=== PATIENT | female | born 1990 | race Hispanic/Latino ===

== ENCOUNTER → 2016-12-11 | Outpatient (CLI) | payer SELFPAY ==
[2016-12-11 15:26] LABS: BASOPHILS # (AUTO) 0.02 10*3/UL; BASOPHILS % (AUTO) 0.3 % (0-1); EOSINOPHILS # (AUTO) 0.04 10*3/UL; EOSINOPHILS % (AUTO) 0.5 % (0-8); HEMATOCRIT 37.4 % (37.0-47.0); HEMOGLOBIN 12.3 g/dL (12.0-16.0); MEAN CORPUSCULAR HEMOGLOBIN 27.8 PG (27-31); MEAN CORPUSCULAR HGB CONC 32.9 g/dL (33-37); MEAN CORPUSCULAR VOLUME 84.4 FL (81-99); MEAN PLATELET VOLUME 12.4 FL (7.4-12.2); MONOCYTES # (AUTO) 0.57 10*3/UL (0.3-0.8); MONOCYTES % (AUTO) 7.5 % (5-15); NEUTROPHILS # (AUTO) 4.77 10*3/UL; NEUTROPHILS % (AUTO) 62.5 % (50-80); PLATELET MORPHOLOGY COMMENT NORMAL MORPHOLOGY (NORM); RBC MORPHOLOGY COMMENT NORMAL MORPHOLOGY (NORM); RED BLOOD COUNT 4.43 10^6/uL (4.20-5.40); WBC MORPHOLOGY COMMENT NORMAL MORPHOLOGY (NORM)
[2016-12-11 15:50] LABS: HIV ANTIBODY NEGATIVE (N); HIV-1 P24 ANTIGEN NEGATIVE (N)
== END ==
LOC: MOB LAB 13:28
PROVIDERS: ATTEND Obstetrics & Gynecology
DX: Z36 Encounter for antenatal screening of mother (principal); Z3A.12 12 weeks gestation of pregnancy
CPT/HCPCS: 36415; 80081; 86900; 86901; 87480; 87491; 87510; 87591; 87660

== ENCOUNTER 2017-06-23 20:05 | Inpatient (IN) ==
[2017-06-23] MEDS ORDERED: Lidocaine 1% 10 MG/ML - 20 ML VIAL SUBCUT PRN (22:47)
[2017-06-23] MEDS ORDERED: ePHEDrine Inj 5 MG in Normal Saline Flush 1 ML IVP PRN (22:47)
[2017-06-23] MEDS ORDERED: CefOXitin Inj 2 GM in Sodium Chloride 0.9% 100 ML IV PRN (22:47)
[2017-06-23] MEDS ORDERED: ONDANSETRON 4 MG/2 ML VIAL IVP PRN (22:47)
[2017-06-23] MEDS ORDERED: Phenylephrine Inj 50 MCG in Normal Saline Flush 0.5 ML IVP PRN (22:47)
[2017-06-23] MEDS ORDERED: diphenhydrAMINE 50 MG/1 ML VIAL IVP PRN (22:47)
[2017-06-23] MEDS ORDERED: NALOXONE 0.4 MG/1 ML VIAL IVP PRN (22:47)
[2017-06-23] MEDS ORDERED: CALCIUM CARBONATE 500 MG (TUMS) CHEWABLE TABLET PO PRN (22:47)
[2017-06-23] MEDS ORDERED: fentaNYL Inj 100 MCG/2 ML VIAL IV PRN (22:47)
[2017-06-23] MEDS ORDERED: BUTORPHANOL TARTRATE 2 MG/1 ML VIAL IVP PRN (22:47)
[2017-06-23] MEDS ORDERED: MISOPROSTOL 200 MCG TABLET RECTAL PRN (22:47)
[2017-06-23] MEDS ORDERED: METHYLERGONOVINE MALEATE 0.2 MG/1 ML VIAL IM PRN (22:47)
[2017-06-23] MEDS ORDERED: OXYTOCIN 10 UNIT/1 ML IM PRN (22:47)
[2017-06-23] MEDS ORDERED: CITRIC ACID/SODIUM CITRATE 30 ML CUP PO PRN (22:47)
[2017-06-23] MEDS ORDERED: Metoclopramide Inj 10 MG/2 ML VIAL IV PRN (22:47)
[2017-06-23] MEDS ORDERED: Naloxone Inj 0.01 MG in Normal Saline Flush 1 ML IVP PRN (22:47)
[2017-06-23] MEDS ORDERED: LIDOCAINE W/ SODIUM BICARB 0.5 ML SYR SUBD PRN (22:47)
[2017-06-23] MEDS ORDERED: NORMAL SALINE 10 ML SYRINGE FLUSH IVP PRN (22:47)
[2017-06-23] MEDS ORDERED: Nalbuphine Inj 20 MG/ML Ampule IVP PRN (22:47)
[2017-06-23] MEDS ORDERED: LIDOCAINE HCL 2 % 10 ML JELLY URO-JECT TOPICAL PRN (22:47)
[2017-06-23] MEDS ORDERED: Carboprost Inj 250 MCG/ML AMP IM PRN (22:47)
[2017-06-23] MEDS ORDERED: Famotidine Inj 20 MG in Normal Saline Flush 10 ML IVP PRN ×4 (22:47)
[2017-06-23] MEDS ORDERED: TERBUTALINE SULFATE 1 MG/1 ML SDV SUBCUT PRN (22:47)
[2017-06-23] MEDS: Lactated Ringers-OB Dept 1,000 ML PRIMARY IV SCH (23:00)
[2017-06-23] MEDS ORDERED: Oxytocin 20 Units + LR 20 UNIT/1,000 ML BAG IV SCH (23:00)
[2017-06-23 23:14] LABS: Hematocrit [HCT] 31.9 % (37.0-47.0); Hemoglobin [HGB] 10.3 g/dL (12.0-16.0); MEAN CORPUSCULAR HEMOGLOBIN 26.1 PG (27-31); MEAN CORPUSCULAR HGB CONC 32.3 g/dL (33-37); MEAN CORPUSCULAR VOLUME 80.8 FL (81-99); MEAN PLATELET VOLUME 12.2 FL (7.4-12.2); RED BLOOD COUNT 3.95 10^6/uL (4.20-5.40)
[2017-06-23] MEDS ORDERED: Fent/Bupiv 2mcg/0.0625% Epid 250 ML ONE (23:25)
[2017-06-23] MEDS ORDERED: fentaNYL Inj 100 MCG/2 ML VIAL ONE (23:36)
[2017-06-23] MEDS ORDERED: fentaNYL Inj 250 MCG/5 ML VIAL IVP ONE (23:40)
[2017-06-24] MEDS ORDERED: Naloxone Inj 0.01 MG in Normal Saline Flush 1 ML IVP PRN ×2
[2017-06-24] MEDS ORDERED: BUTORPHANOL TARTRATE 2 MG/1 ML VIAL IVP PRN
[2017-06-24] MEDS ORDERED: ePHEDrine Inj 5 MG in Normal Saline Flush 1 ML IVP PRN ×2
[2017-06-24] MEDS ORDERED: NALOXONE 0.4 MG/1 ML VIAL IVP PRN
[2017-06-24] MEDS ORDERED: fentaNYL 2 MCG/BUPIVACAINE 0.0625%/NS 0.9% 250 ML BAG EPIDURAL ONE
[2017-06-24] MEDS ORDERED: Phenylephrine Inj 50 MCG in Normal Saline Flush 0.5 ML IVP PRN ×2
--- NOTE | 2017-06-24 00:02 | CRNA.PROGR ---
Anesthesia Time - - Start date: 06/23/17 End date: 06/24/17 - Procedure/Recovery Time Anesthesia : Time In: 23:30 Anesthesia : Time Out: 09:23 Anesthesia : Total Time: 593 - Total Anesthesia Time Total Anesthesia Time (minutes): 593 - Other Weight: 80.649 kg Height: 5 ft 4 in Body Mass Index (BMI): 30.5 Anesthesia Type: Epidural Obstetrics: Planned vaginal delivery w/ neuraxial labor anesthesia/analog
--- NOTE | 2017-06-24 00:08 | CRNA.PROCE ---
Central Neuraxis Block [facility] - - Safety Measures: Site Verified - - Type of Block: Epidural Reason for Block: Analgesia Moniters Used During Block: SPO2, NIBP Sedation Used - Enter Amount Used in Comment Field: Fentanyl (mcg): Yes (100 mcg ) Positioning: Sitting Skin Prep Used: ChloroPrep (Twice) Skin Infiltration - Enter Amount Used in Comment Field: 1% Xylocaine (mL): Yes ( 1.5 ml) Introducer User: 18 Gauge Hustead Spinal Needle Used: 18 Hustead 80 mm (SUE with saline. [place] loss of resistance) Local Anesthetic - Enter Amount Used in Comment Field: 1.5 % Xylocaine with Epinephrine 1:200,000 (mL): Yes (4 ml as test dose=Negative) Bioclusive Dressing Applied: Yes (Skin prep under all adhesive) - - Additional Details: Multip. Reported to be 6 plus cm. Membranes intact. FHT reported to be reassuring. Requesting labor analgesia. Biggest source of discomfort-Sciatic pain with contractions. Required iv fentanyl to get her to hold still enough to place epidural safely.After test dose pt reported less discomfort. Placed on infusion ( see orders) after loading dose of 10 ml. 0525-5 ml of 2% lido MPF for complaints of able to move legs. She is very , very anxious. 0645- Reported to still be 8 cm Bulging bag. States beginning to feel contractions again. 5 ml 2% MPF Lidocaine via epidural. 744-7 ml 3% Nesacaine via epidural for discomfort. Pt now ruptured, clear fluid , on Pitocin infusion. 833-50 mcgs Fentanyl plus 8 ml 3% Nesacaine via epidural plus 50 mcgs Fentanyl IV. 914 Delivered male . Placenta immediately followed. No hemorrhage. No tears to repair. Apgars reported to be 7 and 9 by OB nursing staff. Anesthesia Time - Other Weight: 80.649 kg Height: 5 ft 4 in Body Mass Index (BMI): 30.5
[2017-06-24] MEDS ORDERED: LIDOCAINE MPF 2% - 5 ML (20 MG/1 ML) ONE (05:27)
[2017-06-24] MEDS ORDERED: Oxytocin 20 Units + LR 20 UNIT/1,000 ML BAG IV SCH ×2 (07:30→09:47)
[2017-06-24] MEDS ORDERED: Chloroprocaine 3% MPF (30mg/ml) 20ml vial ONE (07:45)
[2017-06-24] MEDS ORDERED: fentaNYL Inj 100 MCG/2 ML VIAL ONE (08:33)
[2017-06-24] MEDS: Lactated Ringers-OB Dept 1,000 ML PRIMARY IV SCH (08:49)
--- NOTE | 2017-06-24 09:26 | OB.DEL.SUM ---
Delivery Note Delivery Summary: [place] presented in early labor last night at 5 cm. She progressed very slowly, likely in OP position. Amniotomy was performed this morning at 8 cm with return of clear fluid. Pitocin was started which resulted in a good labor pattern which ultimately achieved complete dilation. FHRT was category 1 throughout labor. The head rotated to OA spontaneously and she pushed twice to of a viable male infant, Apgars 7/9, weight 7# 13 oz., over an intact perineum. The placenta delivered promptly, spontaneously, intact, with a 3 vessel cord. EBL 100 ml. There were no complications. Mother and baby tolerated delivery well.
[2017-06-24] MEDS ORDERED: NORMAL SALINE 10 ML SYRINGE FLUSH IVP PRN (09:47)
[2017-06-24] MEDS ORDERED: Ondansetron ODT Tab 4 MG TAB PO PRN (09:47)
[2017-06-24] MEDS ORDERED: BENZOCAINE/MENTHOL SPRAY 56 GM BOTTLE TOPICAL PRN (09:47)
[2017-06-24] MEDS ORDERED: LIDOCAINE HCL 2 % 10 ML JELLY URO-JECT TOPICAL PRN (09:47)
[2017-06-24] MEDS ORDERED: ONDANSETRON 4 MG/2 ML VIAL IVP PRN (09:47)
[2017-06-24] MEDS ORDERED: Nalbuphine Inj 20 MG/ML Ampule IVP PRN ×2 (09:47)
[2017-06-24] MEDS ORDERED: diphenhydrAMINE 50 MG/1 ML VIAL IVP PRN ×2 (09:47)
[2017-06-24] MEDS ORDERED: LANOLIN HPA 40 GM TUBE TOPICAL PRN (09:47)
[2017-06-24] MEDS ORDERED: GLYCERIN/WITCH HAZEL 1 BOX TOPICAL PRN (09:47)
[2017-06-24] MEDS ORDERED: DIPH,PERTUSS,TET(ADACEL) VAC/PF 0.5 ML (Tdap) IM ONE (09:47)
[2017-06-24] MEDS ORDERED: CALCIUM CARBONATE 500 MG (TUMS) CHEWABLE TABLET PO PRN (09:47)
[2017-06-24] MEDS ORDERED: ACETAMINOPHEN 325 MG TABLET PO PRN (09:47)
[2017-06-24] MEDS ORDERED: diphenhydrAMINE 25 MG CAPSULE PO PRN (09:47)
[2017-06-24] MEDS: IBUPROFEN 800 MG TABLET PO PRN ×2 (12:33→19:38)
[2017-06-24 13:33] VITALS: RESP 16
[2017-06-24] MEDS: HYDROcodone-APAP 5 MG -325 MG TABLET PO PRN (20:35)
[2017-06-24] MEDS: DOCUSATE 100 MG CAPSULE PO SCH (20:36)
[2017-06-25] MEDS: HYDROcodone-APAP 5 MG -325 MG TABLET PO PRN (00:57)
[2017-06-25] MEDS: IBUPROFEN 800 MG TABLET PO PRN (04:51)
[2017-06-25 04:53] LABS: Hematocrit [HCT] 27.8 % (37.0-47.0); Hemoglobin [HGB] 8.8 g/dL (12.0-16.0); MEAN CORPUSCULAR HEMOGLOBIN 26.1 PG (27-31); MEAN CORPUSCULAR HGB CONC 31.7 g/dL (33-37); MEAN CORPUSCULAR VOLUME 82.5 FL (81-99); MEAN PLATELET VOLUME 12.5 FL (7.4-12.2); RED BLOOD COUNT 3.37 10^6/uL (4.20-5.40)
[2017-06-25] MEDS ORDERED: Prenatal Multivitamin Tab 1 TAB TAB PO SCH (09:00)
[2017-06-25] MEDS: DOCUSATE 100 MG CAPSULE PO SCH (10:19)
[2017-06-25 10:28] VITALS: BP 111/67; TEMP 97.4; O2SAT 97
--- NOTE | 2017-06-25 12:16 | DCSUMMARY ---
Hospitalization Summary Admit Date: 06/23/17 Discharge Date: 06/25/17 Primary Diagnosis:: Term , Delivered Delivery Type: Vaginal Hospital Course: Normal, uncomplicated labor, delivery, and course. Discharge to home on PPD1 in good condition. F/u 6 weeks. / Postop Complications: None Complications: None Exam - Vitals Vital Signs: Vital Signs Temperature 97.4 F Temperature Source Oral Pulse Rate [Pulse Oximeter] 72 Pulse Rate 79 Respiratory Rate [Lower 17 Abdomen] Respiratory Rate 16 Blood Pressure [Left Arm] 111/67 Blood Pressure [Right Arm] 121/60 Blood Pressure 114/83 Pulse Ox 97 Oxygen Delivery Method Room Air Height 5 ft 4 in Weight 177 lb 12.8 oz
--- NOTE | 2017-06-25 12:17 | OB.PROGRES ---
Subjective Post Op Day: 1 Pain Management: PO Moya Catheter: No Flatus: Yes Diet: Regular Feeding Method: Exculsively Ambulating: Yes Concerns / Additional Information: Normal lochia. No complaints. Would like to go home this afternoon. Assesstment / Plan Assessment / Plan: PPD1, doing well. Discharge to home.
== END 2017-06-25 17:56 | disposition home or self-care (01) | DRG 775 ==
LOC: OBOP 20:05 → OBIP 22:49
PROVIDERS: ADMIT Obstetrics & Gynecology; ATTEND Obstetrics & Gynecology